=== PATIENT | female | born 1955 | race Caucasian/White ===

== ENCOUNTER 2020-04-21 08:16 | Observation (INO) ==
[~2020-04-21 08:16] MED LIST: BUPIVACAINE HCL/EPINEPHRINE 50 ML VIAL ONE; PROPOFOL VIAL IV ONE; ROPIVACAINE HCL/PF 100 MG, EPINEPHrine 0.2 MG, KETOROLAC TROMETHAMINE 30 MG in NORMAL S... IJ PRN; TRANEXAMIC ACID 1,000 MG in NORMAL SALINE 100 ML IV PRN; ceFAZolin SODIUM 1 GM VIAL IV PRN
[2020-04-21] MEDS ORDERED: ceFAZolin SODIUM 1 GM VIAL ONE (08:48)
[2020-04-21] MEDS: RINGER'S SOLUTION,LACTATED 1,000 ML IV PRN ×3 (08:57→16:16)
[2020-04-21] MEDS ORDERED: MIDAZOLAM HCL/PF 5 MG/ML VIAL ONE (09:08)
--- NOTE | 2020-04-21 09:15 | ANES ---
Anesthesia Pre Procedure Eval Vitals/Labs: Last Vital Signs Temp 36 C 04/21/20 08:37 Pulse 95 04/21/20 08:37 Resp 18 04/21/20 08:37 BP 128/67 04/21/20 08:37 Pulse Ox 96 04/21/20 08:37 HOME MEDICATIONS Cyanocobalamin/Folic Acid [B-12 1,000 Mcg Sub Tablet] 2 ea PO DAILY 11/29/13 [Last Taken Unknown] Simvastatin 80 mg PO HS 11/29/13 [Last Taken Unknown] metFORMIN HCL [Metformin HCl] 1,000 mg PO BID 11/29/13 [Last Taken Unknown] Multivitamin [Multi Vitamin Daily] 1 ea PO DAILY 06/20/14 [Last Taken Unknown] Lansoprazole 15 mg PO DAILY 11/09/17 [Last Taken 04/21/20 07:30] cholecalciferol (vitamin D3) 50 mcg (2,000 unit) capsule 2,000 unit PO DAILY 04/25/18 [Last Taken Unknown] duloxetine 60 mg capsule,delayed release 60 mg PO DAILY 04/25/18 [Last Taken Unknown] pioglitazone 30 mg tablet 30 mg PO DAILY 04/25/18 [Last Taken Unknown] hydrochlorothiazide 25 mg tablet 25 mg PO DAILY tab 05/04/18 [Last Taken 04/21/20 07:30] naproxen sodium 220 mg tablet 220 mg PO BID PRN 05/04/18 [Last Taken Unknown] gabapentin 600 mg tablet 600 mg PO HS tab 04/01/19 [Last Taken Unknown] levothyroxine 100 mcg capsule 100 mcg PO DAILY #60 cap 03/31/20 [Last Taken Unknown] tramadol 50 mg tablet 50 mg PO Q6H PRN #60 tab 03/31/20 [Last Taken Unknown] Captopril [Capoten] 50 mg PO DAILY 04/20/20 [Last Taken 04/21/20 07:30] Allergies/Adverse Reactions: Allergies Allergy/AdvReac Type Severity Reaction Status Date / Time nitrofurantoin Allergy Mild rash Verified 04/21/20 08:43 [From Macrobid] doxycycline AdvReac Mild Vomiting Verified 04/21/20 08:43 - Planned Procedure Planned Procedure: Rt Arthroplasty Total Knee Medication List Reviewed:: Yes Allergies Verified: Yes Medical History (Last Reviewed 04/21/20 @ 09:12 by Rahat Borges CRNA) Basal cell carcinoma of skin face Schwannoma Onset Date: ~04/26/10 Vitamin D deficiency Fibromyalgia GERD (gastroesophageal reflux disease) Hyperlipidemia Onset Date: ~10/18/11 Hypertension Onset Date: ~10/18/11 Hypothyroidism Onset Date: ~10/18/11 Osteoarthritis Onset Date: ~04/12/17 bilateral knee Pyogenic arthritis Sinusitis Tachycardia Type 2 diabetes mellitus Onset Date: ~10/18/11 Urinary tract infection Surgical History (Last Reviewed 04/21/20 @ 09:12 by Rahat Borges CRNA) H/O adenoidectomy H/O arthroscopic knee surgery Onset Date: ~2000 right H/O section Onset Date: ~1976 1978 H/O colonoscopy Onset Date: ~03/23/05 Dr. Shepard: small internal hemorrhoids H/O dilation and curettage Onset Date: ~07/19/10 [facility] H/O foot surgery Onset Date: ~2000 ganglion removal left foot H/O sinus surgery Onset Date: ~12/11/08 Dr. Zavala H/O tubal ligation Onset Date: ~1984 History of appendectomy History of carpal tunnel release Onset Date: ~2004 right History of esophagogastroduodenoscopy (EGD) Onset Date: ~03/23/05 with biopsy History of tonsillectomy Status post wrist surgery Onset Date: ~1975 ganglion left Family History (Last Reviewed 04/21/20 @ 09:12 by Rahat Borges CRNA) Father , 85 Cancer bladder, prostate Osteoporosis Grandfather , maternal No problems noted. Grandfather , paternal No problems noted. Grandmother , maternal No problems noted. Grandmother , paternal Cancer breast Mother , 82 CHF (congestive heart failure) Diabetes Sister Rheumatoid arthritis Sleep apnea Osteoporosis Sister Osteoarthritis - Family Anesthesia History Family History:: no untoward family reactions to anesthesia, no familial bleeding tendencies, no family history of clotting disorders, no family history of premature - Airway/Neck/Teeth Within Normal Limits:: Yes Teeth Condition: intact Neck Exam: full range of motion Mallampatti Score: 2 Thyromental (T-M) distance: > 6 cm Mandibulo Hyoid distance: > 3 cm - Respiratory Respiratory Physical: lungs clear Smoking Status: Never smoker Sleep Apnea currently treated: No Sleep Apnea by current assessment: Yes - possible by symptoms - Cardiovascular Cardiac History: hypertension, hyperlipidemia Tolerate Activity: Fair Heart Sounds: S1 & S2, Regular - Anesthesia Assessment and Plan ASA Class: PS, II Anesthesia Type Plan: Block - adductor canal block for post op pain relief, Spinal
[2020-04-21] MEDS ORDERED: MAGNESIUM HYDROXIDE 30 ML UDC PO PRN (12:25)
[2020-04-21] MEDS ORDERED: ACETAMINOPHEN 500 MG TABLET PO PRN (12:25)
[2020-04-21] MEDS ORDERED: ONDANSETRON HCL/PF 2 MG/ML VIAL IV PRN (12:25)
[2020-04-21] MEDS ORDERED: MAG HYDROX/ALUMINUM HYD/SIMETH 30 ML UDC PO PRN (12:25)
--- NOTE | 2020-04-21 12:33 | OR ---
Operative Report - Dictated Report Narrative: Date: 04/21/2020 Preoperative diagnosis: Right knee degenerative joint disease. Postoperative diagnosis: Right knee degenerative joint disease. Procedure: Right total knee arthroplasty. Surgeon: Ervin Oliva M.D. Alteration Specialist: Thomas Stack PA-C provided a set of essential, skilled, educated hands that assisted in positioning, transfer, retraction, manipulation, irrigation, closure of wounds, and placement of dressings all of which could not be provided by the available surgical crew. Anesthesia: Spinal with regional block and local periarticular joint injection. Complications: None Specimens: Bone for disposal. Estimated blood loss: Minimal. Tourniquet time: 73 min at 300 mmHg Retained implants: Depuy Attune size 7 standard lugged cemented posterior stabilized femoral component. Size 5 rotating bearing cemented tibial platform. 7 by 6 millimeter posterior stabilized cross-linked tibial insert. 35 mm medialized patella button. Indications: Lyn is a 64-year-old female who has been followed in my clinic for period of time with significant complaints of right knee pain consistent with arthritic changes. They had failed conservative measures including but not limited to activity modification, passage of time, medications, and other conservative measures. Patient wished to proceed with surgical treatment. The risks, benefits, and alternatives were discussed in clinic. The risks of , blood clots, bleeding, infection, nerve/tendon blood vessel/ injury, malposition of components, intraoperative fracture, postoperative limited range of motion, persistent pain, failure of components, and need for additional procedures. Patient wished to proceed consent was obtained after answering all questions. Procedure: After marking the correct extremity on the floor, the patient was taken to the operating room. A timeout was performed. IV antibiotics consisting of 2 g of Ancef were administered prior to the procedure. A regional followed by spinal anesthetic was induced by anesthesia. on the operative table with all bony prominences well-padded. Polanco catheter was placed and a bump was placed under the operative side buttock. SCDs and SADA hose were utilized on the nonoperative leg. A well-padded tourniquet was applied to the operative thigh. The operative leg was then pre-scrubbed with alcohol prepped and draped in a standard sterile fashion. After exsanguinating the extremity with an Esmarch bandage, the tourniquet was inflated. After marking out the anterior knee for standard incision centered over the patella, the skin was incised and dissected down to the joint retinaculum. The joint retinaculum was marked out as well as the horizontal axis of the patella, and a standard medial parapatellar arthrotomy was then made. The most proximal aspect of the quadriceps tendon and the patella tendon insertion were protected from release. A partial synovectomy was performed as well as a resection of the infrapatellar fat pad. The distal femoral fat pad proximal to the trochlea was also resected using cautery. The soft tissues were elevated off the medial aspect of the proximal tibia using a Child elevator ensuring that we did not transect the medial collateral ligament. Upon initial evaluation range of motion was approximately 12 degrees to 120 degrees of flexion. There were signs of advanced arthrosis in the medial and patellofemoral joint spaces. There were large marginal osteophytes which were removed with a rongeur. The knee was hyperflexed and the patella was tucked laterally. Protecting the surrounding soft tissues with Homans, an entry drill was placed down the femoral canal using Whitesides line for guidance into the entry point. The intramedullary femoral alignment wilma was utilized in order to cut the distal femur in 5 of valgus resecting 11 millimeters of bone. Next the distal femur was sized to a size 7. An anterior referencing guide was utilized to place the distal femoral cutting block in 3 of external rotation. This was pinned into place. The rotation was confirmed both visually and based on anatomic landmarks. The 4 in 1 cutting jig of the appropriate size was utilized in order to make all bony cuts. Retractors were utilized in order to protect surrounding soft tissues. This cut did not result in any excessive notching. We then cut the box centered over the distal femur. This allowed for resection of the anterior and posterior cruciate ligaments. I then turned my attention to the preparation of the tibia. Using an extra medullary tibial alignment wilma, 4 millimeters of bone was resected off the medial articular surface. This was made perpendicular to the mechanical axis of the joint with the alignment wilma centered over the ankle mortise. The alignment wilma was parallel to the mechanical axis, centered over the medial one third of the tibial tubercle, paralleling the anterior surface of the tibia. We then turned our attention to the remaining meniscus and soft tissues. These were removed while protecting the surrounding ligaments and soft tissues. The marginal osteophytes off the anterior, posterior, medial, lateral aspects of the femur and tibia were removed. The tibia was sized out to a size 5. Next the tibia was drilled and punched in an externally rotated position as confirmed with a drop wilma. Next the trial femur and a series of tibial inserts were utilized in order to allow for full extension and maximal flexion. It was found that a 6 millimeter insert gave the best range of motion and stability at multiple flexion points as well as at full extension there was less than 2 mm of gapping both medially and laterally. There is minimal anterior translation with the knee at 90 of flexion and no signs of being able to dislocate the knee. The patella was then prepared. The initial thickness was 22 millimeters. This was reamed down to 14 millimeters parallel to the anterior surface of the patella. It was sized out to a size 35 mm medialized patella button. This was then drilled and trialed. Without any medial restraint the patella tracked appropriately and did not sublux or dislocate. At this point, it was felt these were the appropriate sized implants and all trials were removed. The standard periarticular joint injection consisting of ropivacaine, Toradol, and epinephrine were injected into the periarticular joint tissues. The bony surfaces were thoroughly irrigated with a pulsatile-suction saline irrigation device. A bone plug from the prior resected anterior chamfer cut was placed into the drill hole at the distal femur. The bony surfaces were then dried in preparation for placement of the implants. The cement was vacuum mixed per the echocardiography tech's instructions. The cement was placed on the dry bony surfaces and posterior aspect of the implants. The implants were impacted into place, removing all extruded cement. At this point anesthesia administered tranexamic acid per protocol intravenously. The knee was placed in extension with axial loading with the trial insert while the cement cured. A dilute 0.35% betadyne-saline solution was used to irrigate the knee and allowed to sit in the knee while the cement cured. Once the cement cured, all remaining extruded cement was removed. The knee was placed through a range of motion with the trial insert to ensure appropriate range of motion and stability. Final range of motion was approximately 0 to 120 degrees. The knee was again thoroughly irrigated with pulsatile saline lavage. The final polyethylene insert was then impacted into place ensuring no retained soft tissues. The remaining periarticular joint injection was injected. The knee was then packed with lap sponges which were soaked with dilute betadyne solution and the tourniquet was let down. Pressure was held for approximately 2 minutes and then hemostasis was obtained using electrocautery to coagulate any bleeding vessels. The knee was then placed over a triangle and the arthrotomy was closed with interrupted #1 Vicryl after thoroughly irrigating the joint. The deep and subcutaneous tissues were closed with interrupted 0 and 3-0 Vicryl respectively. Skin was closed with a running subcutaneous 3-0 Monocryl and Prineo dressing. 4 x 4's, ABD, Sof-Rol, and a full leg Sandeep wrap were applied. All sponge, needle, blade, and instrument counts were correct prior to closing the wounds. Postoperative condition: The patient was awoken and transferred to the postanesthesia care unit in stable condition. Plan is to be admitted to the inpatient medical/surgical floor postoperatively for 24 hours of IV antibiotics, physical therapy, occupational therapy, and medical co-management. Patient will be weightbearing as tolerated with range of motion as tolerated. DVT prophylaxis will be with SCDs, SADA hose, and pharmacological anticoagulation. Anticipated hospital stay is approximately 2-4 days.
--- NOTE | 2020-04-21 12:57 | ANES ---
Anesthesia Procedure Note Procedure Note: ANESTHESIA PROCEDURE NOTE Date of Procedure: 04/21/2020 Time of procedure: 10:10 AM. Performed by: JOSE ROBERTO Montiel CRNA, MSN Lead Principal Technical Architect: Katiuska Butts RN. Preprocedure diagnosis: Post right total knee arthroplasty pain. Post procedure diagnosis: Same. Procedure: Right adductor Canal Block. Indications: Post right total knee arthroplasty pain relief. Findings: See below. Details of the procedure: The patient was brought to OR #2 and placed in supine position. The patient's right femoral area to the knee was prepped with chlorhexidine and using ultrasound guidance the right femoral artery and nerve was identified and then followed to the level of the adductor canal. Lidocaine 1% was infiltrated to the skin of the intended injection site. Under ultrasound guidance the saphenous nerve was approached with visualization of a 2 inch shielded block needle. Once saphenous nerve was identified with proximity to the needle tip, the saphenous nerve was surrounded with 20 mL bupivacaine 0.25% with 1-200,000 epinephrine. Please see radiology/ultrasound report for details and retained images of the procedure. EBL: 0 Fluids: N/A. Specimen: N/A. Post procedure condition: The patient tolerated the procedure well. No complications were noted. Thank you for this consultation. Rahat Borges CRNA, ARNP, MSN
--- NOTE | 2020-04-21 12:58 | ANES ---
Post Anesthesia Discharge - Transfer of Care Transfer of Care handoff given to nurse: Yes - Discharge from PACU Discharge from PACU when meets criteria: Yes - Alert and comfortable.
[2020-04-21] MEDS: oxyCODONE HCL/ACETAMINOPHEN 1 TAB TABLET PO PRN ×2 (15:33→19:47)
[2020-04-21] MEDS: ceFAZolin SODIUM 2 GM in DEXTROSE 5 % IN WATER 50 ML IV SCH ×2 (17:56)
[2020-04-21] MEDS: MORPHINE SULFATE 2 MG/ML DISP.SYRIN IV PRN ×2 (18:44→23:26)
[2020-04-21] MEDS ORDERED: SENNOSIDES/DOCUSATE SODIUM 1 TAB TABLET PO SCH (21:00)
[2020-04-21] MEDS ORDERED: GABAPENTIN 600 MG TABLET PO SCH (21:00)
[2020-04-21] MEDS ORDERED: SIMVASTATIN 40 MG TABLET PO SCH (21:00)
[2020-04-22] MEDS: oxyCODONE HCL/ACETAMINOPHEN 1 TAB TABLET PO PRN ×5 (00:01→14:23)
[2020-04-22] MEDS: ceFAZolin SODIUM 2 GM in DEXTROSE 5 % IN WATER 50 ML IV SCH ×4 (02:10→09:31)
[2020-04-22] MEDS ORDERED: PANTOPRAZOLE SODIUM 20 MG TABLET.DR PO SCH (07:00)
[2020-04-22] MEDS ORDERED: LEVOTHYROXINE SODIUM 100 MCG TABLET PO SCH (07:00)
[2020-04-22] MEDS ORDERED: CHOLECALCIFEROL 1,000 UNIT CAPSULE PO SCH (09:00)
[2020-04-22] MEDS ORDERED: DULoxetine HCL 30 MG CAPSULE.SA PO SCH (09:00)
[2020-04-22] MEDS ORDERED: PIOGLITAZONE HCL 15 MG TABLET PO SCH (09:00)
[2020-04-22] MEDS ORDERED: HYDROCHLOROTHIAZIDE 25 MG TABLET PO SCH (09:00)
[2020-04-22] MEDS ORDERED: CAPTOPRIL 25 MG TABLET PO SCH (09:00)
--- NOTE | 2020-04-22 09:14 | DS ---
(1) Status post total right knee replacement using cement Problem: Acute Date of Discharge:: 04/22/20 Hospital Course: -64-year-old female postop day 1 status post right total knee arthroplasty. Patient has had an uncomplicated stay in the hospital she was admitted postoperatively yesterday. Patient's pain is well controlled, she rates it at 1/10 while sitting, 56/10 with ambulation. She notes her pain is worse with ambulation better with rest. She denies any other significant radiating symptoms. She notes she has been up to walk and ambulated down the morse without significant complication. She has been using a walker for ambulation. Patient has passed stairs requirement with PT. Patient is otherwise tolerating a p.o. diet. She is worked with PT/OT. Her pain is well managed. Exam today reveals right lower extremity sensation intact light touch, distal capillary refill brisk, pernio dressing in place, no significant erythema or drainage, diffuse mild tenderness about right knee. Patient will otherwise continue with following recommendations: -PT/OT progress as tolerated per protocol -Assistive device PRN -P.o. pain medication PRN -Diet as tolerated -DVT prophylaxis will be transition to 325 mg aspirin twice daily for 7 days followed by 325 mg aspirin daily for 6 weeks, SADA wagner bilaterally knee-high -Follow-up with orthopedic outpatient clinic at 2 weeks postoperative -Maintain pernio dressing in place -Monitor surgical incision for erythema or drainage -Disposition: Discharge home begin outpatient PT Procedures Performed: see notes below List Procedures: S/p right total knee arthroplasty Discharge Location: Home Disposition: Home self-care Condition: Stable Discharge Activity: Activity as tolerated, Weight bearing - assistive device PRN Discharge Diet: General/regular food Referrals: Fay Zurita, [facility] [Primary Care Provider] - Problem Oriented Discharge Instructions to Patient/Family: Total Knee Replacement, Care After, [id number] Print Language (Sri Lankan or Mauritanian Available): [place]an Additional Patient Instructions (free text): Physical therapy at [facility] outpatient rehab department on April 23 at 10:30a.m. Follow up Orthopedic office appointment on MondayMay 06 at 9:45am. Prescriptions (Any new or edited meds): Aspirin 325 mg PO BID #60 tab Transmission Status: Pending to [place], [place] oxyCODONE HCL/ACETAMINOPHEN [Percocet 5 MG/325 MG] 1 - 2 tab PO Q4H PRN #60 tab PRN Reason: Moderate Pain (Pain Scale 4-6) Transmission Status: Received by [facility], [place], [place] Complete Home Medications List: Complete Home Medication List: Cyanocobalamin/Folic Acid [B-12 1,000 Mcg Sub Tablet] 2 ea PO DAILY 11/29/13 Simvastatin 80 mg PO HS 11/29/13 metFORMIN HCL [Metformin HCl] 1,000 mg PO BID 11/29/13 Multivitamin [Multi-Vitamin Daily] 1 ea PO DAILY 06/20/14 Lansoprazole 15 mg PO DAILY 11/09/17 cholecalciferol (vitamin D3) 50 mcg (2,000 unit) capsule 2,000 unit PO DAILY 04/25/18 duloxetine 60 mg capsule,delayed release 60 mg PO DAILY 04/25/18 pioglitazone 30 mg tablet 30 mg PO DAILY 04/25/18 hydrochlorothiazide 25 mg tablet 25 mg PO DAILY tab 05/04/18 naproxen sodium 220 mg tablet 220 mg PO BID PRN 05/04/18 gabapentin 600 mg tablet 600 mg PO HS tab 04/01/19 levothyroxine 100 mcg capsule 100 mcg PO DAILY #60 cap 03/31/20 tramadol 50 mg tablet 50 mg PO Q6H PRN #60 tab 03/31/20 Captopril [Capoten] 50 mg PO DAILY 04/20/20 Aspirin 325 mg PO BID #60 tab 04/22/20 oxyCODONE HCL/ACETAMINOPHEN [Percocet 5 MG/325 MG] 1 - 2 tab PO Q4H PRN #60 tab 04/22/20 Amb Orders for Discharge: PT Evaluation and Treatment* Location: None Selected Forms: Patient Portal Registration
[2020-04-22] MEDS ORDERED: ENOXAPARIN SODIUM 40 MG/0.4 ML SYRG SC SCH (11:26)
[2020-04-22 15:50] VITALS: BP 143/74
== END 2020-04-22 15:48 | disposition home or self-care (01) ==
LOC: MS 08:16 → SUR 08:16
PROVIDERS: ADMIT Orthopaedic Surgery; ATTEND Orthopaedic Surgery
CPT/HCPCS: 73560; 97110; 97116; 97161; 97165; 97535